=== PATIENT | female | born 1970 | race Caucasian/White ===

== ENCOUNTER 2016-10-03 12:27 | Emergency (ER) | payer OTHER ==
[~2016-10-03] VITALS: Ht 157.5 cm; Wt 57.3 kg
[~2016-10-03 12:27] MED LIST: CITA20TA9 PO; DOCU-275 PO; IBUP100T35 PO; MELO-273 PO; NO MEDS; NOCURR; REMERON; TNFMISC; TOPI25 PO
[2016-10-03] MEDS ORDERED: UNK MUSCLE RELAXER PO (12:39)
[2016-10-03] MEDS ORDERED: HYDR-309 PO (12:39)
[2016-10-03] MEDS ORDERED: GABA-531 PO (12:39)
[2016-10-03] MEDS ORDERED: HYDROCODONE/ACETAMINOPHEN 10-325 MG TABLET PO ONE (13:30)
[2016-10-03] MEDS ORDERED: BACL10TA PO (13:30)
[2016-10-03 14:58] VITALS: BP 111/62
[2016-10-03] MEDS ORDERED: LORazepam 1 MG TABLET PO ONE (15:00)
== END 2016-10-03 14:59 | disposition home or self-care (01) ==
LOC: EMS 12:28
DX: G43.909 Migraine, unspecified, not intractable, without status migrainosus (principal); F41.9 Anxiety disorder, unspecified; M79.7 Fibromyalgia; Z87.448 Personal history of other diseases of urinary system; Z90.721 Acquired absence of ovaries, unilateral; Z91.041 Radiographic dye allergy status
CPT/HCPCS: 70450; 99284

== ENCOUNTER 2021-08-18 21:31 | Emergency (ER) | payer OTHER ==
[~2021-08-18] VITALS: Ht 157.5 cm; Wt 63.6 kg
[~2021-08-18 21:31] MED LIST changes: +BACL10TA PO; -CITA20TA9 PO; -DOCU-275 PO; +DOCU-385 PO; +GABA-1181 PO; +HYDR-309 PO; -IBUP100T35 PO; -MELO-273 PO; -NO MEDS; -NOCURR; -REMERON; -TNFMISC; -TOPI25 PO
[2021-08-18] MEDS ORDERED: TRAM50TA4 PO (21:58)
[2021-08-18 23:28] LABS: BASOPHILS % (AUTO) 0.8 % (0.0-2.0); EOSINOPHILS % (AUTO) 3.5 % (1.0-6.0); HEMATOCRIT 40.1 % (36-46); HEMOGLOBIN 13.2 g/dL (12.0-16.0); LYMPHOCYTES # (AUTO) 1.6 K/uL (1.0-4.8); LYMPHOCYTES % (AUTO) 37.5 % (22.0-44.0); MEAN CORPUSCULAR HEMOGLOBIN 27.3 pg (26.0-34.0); MEAN CORPUSCULAR VOLUME 83 fL (80-100); MONOCYTES # (AUTO) 0.4 K/uL (0.1-1.0); MONOCYTES % (AUTO) 8.6 % (2.0-9.0); NEUTROPHILS # (AUTO) 2.1 K/uL (1.8-7.7); NEUTROPHILS % (AUTO) 49.6 % (40.0-70.0); PLATELET COUNT (AUTO) 223 K/uL (150-450); RED BLOOD CELL COUNT(AUTO) 4.83 MIL/uL (4.00-5.20); RED CELL DISTRIBUTION WIDTH 13.2 % (11.5-14.5)
[2021-08-18 23:37] LABS: ANION GAP 4 mmol/L (8-16); CALCIUM, TOTAL 8.1 mg/dL (8.8-10.5); CARBON DIOXIDE 29 mmol/L (22-29); CHLORIDE 104 mmol/L (98-107); CREATININE 0.73 mg/dL (0.60-1.30); GLOMERULAR FILTR. RATE CALC > 60 mL/min (>60); GLUCOSE,RANDOM 110 mg/dL (70-110); POTASSIUM 3.8 mmol/L (3.5-5.1); SODIUM SERUM 137 mmol/L (136-145); UREA NITROGEN, BLOOD 27 mg/dL (7-18)
[2021-08-18 23:42] LABS: PROTHROMBIN TIME 10.4 SEC (9.4-11.6)
[2021-08-18] MEDS ORDERED: KETOROLAC TROMETHAMINE 30 MG/ML VIAL IM ONE (23:45)
[2021-08-18 23:50] LABS: ALANINE AMINOTRANSFERASE 23 U/L (12-78); ALBUMIN 3.7 g/dL (3.4-5.0); ALKALINE PHOSPHATASE 77 U/L (46-116); ASPARTATE AMINOTRANSFERASE 12 U/L (15-37); BILIRUBIN,TOTAL 0.1 mg/dL (0.1-1.0); HCG,QUANTITATIVE 3 mIU/mL (0-6); TOTAL PROTEIN, SERUM 7.1 g/dL (6.4-8.2)
[2021-08-19] VITALS: BP 141/89
== END 2021-08-19 01:14 | disposition home or self-care (01) ==
LOC: EMS 21:35
DX: M79.652 Pain in left thigh (principal); M79.7 Fibromyalgia; G43.909 Migraine, unspecified, not intractable, without status migrainosus; Q61.3 Polycystic kidney, unspecified; M47.9 Spondylosis, unspecified; Z87.42 Personal history of other diseases of the female genital tract; Z98.890 Other specified postprocedural states; Z98.51 Tubal ligation status; Z91.041 Radiographic dye allergy status
CPT/HCPCS: 36415; 80053; 84702; 85025; 85610; 85730; 96372; 99283; J1885

== ENCOUNTER 2022-08-24 22:08 | Emergency (ER) | payer OTHER ==
[~2022-08-24] VITALS: Ht 157.5 cm; Wt 59.1 kg
[~2022-08-24 22:08] MED LIST changes: -BACL10TA PO; -DOCU-385 PO; -GABA-1181 PO; -HYDR-309 PO; +TRAM-559 PO
[2022-08-24 23:03] LABS: BASOPHILS % (AUTO) 0.4 % (0.0-2.0); EOSINOPHILS % (AUTO) 2.4 % (1.0-6.0); HEMATOCRIT 38.3 % (36-46); HEMOGLOBIN 12.4 g/dL (12.0-16.0); LYMPHOCYTES # (AUTO) 1.1 K/uL (1.0-4.8); LYMPHOCYTES % (AUTO) 21.8 % (22.0-44.0); MEAN CORPUSCULAR HEMOGLOBIN 27.8 pg (26.0-34.0); MEAN CORPUSCULAR HGB CONC 32.4 G/dL (31.0-37.0); MEAN CORPUSCULAR VOLUME 86 fL (80-100); MONOCYTES # (AUTO) 0.4 K/uL (0.1-1.0); MONOCYTES % (AUTO) 6.7 % (2.0-9.0); NEUTROPHILS # (AUTO) 3.6 K/uL (1.8-7.7); NEUTROPHILS % (AUTO) 68.7 % (40.0-70.0); PLATELET COUNT (AUTO) 207 K/uL (150-450); RED BLOOD CELL COUNT(AUTO) 4.47 MIL/uL (4.00-5.20); RED CELL DISTRIBUTION WIDTH 13.3 % (11.5-14.5)
[2022-08-24 23:09] LABS: APPEARANCE,URINE CLEAR (CLEAR); BILIRUBIN,URINE NEGATIVE (NEGATIVE); GLUCOSE, URINE (UA) NEGATIVE (NEGATIVE); KETONES,URINE NEGATIVE (NEGATIVE); LEUKOCYTE ESTERASE ,URINE MODERATE (NEGATIVE); NITRATE,URINE NEGATIVE (NEGATIVE); OCCULT BLOOD,URINE SMALL (NEGATIVE); PROTEIN,URINE NEGATIVE (NEGATIVE); UROBILINOGEN,URINE <=1.0 mg/dL (<=1.0)
[2022-08-24 23:15] LABS: ANION GAP 9 mmol/L (8-16); CALCIUM, TOTAL 9.3 mg/dL (8.8-10.5); CARBON DIOXIDE 27 mmol/L (22-29); CHLORIDE 104 mmol/L (98-107); CREATININE 0.71 mg/dL (0.60-1.30); GLOMERULAR FILTR. RATE CALC > 60 mL/min (>60); GLUCOSE,RANDOM 108 mg/dL (70-110); POTASSIUM 4.2 mmol/L (3.5-5.1); SODIUM SERUM 140 mmol/L (136-145)
[2022-08-24] MEDS ORDERED: FAMOTIDINE 10 MG/ML 2 ML VIAL IVP ONE (23:15)
[2022-08-24] MEDS ORDERED: MAG HYDROX/AL HYDROX/SIMETH 30 ML SUSP UDCUP PO ONE (23:15)
[2022-08-24] MEDS ORDERED: DiphenhydrAMINE HCL 50 MG/ML VIAL IVP ONE (23:15)
[2022-08-24] MEDS ORDERED: SODIUM CHLORIDE 0.9% 1,000 ML IV ONE (23:15)
[2022-08-24] MEDS ORDERED: KETOROLAC TROMETHAMINE 30 MG/ML VIAL IVP ONE (23:15)
[2022-08-24 23:19] LABS: ALANINE AMINOTRANSFERASE 25 U/L (12-78); ALBUMIN 4.1 g/dL (3.4-5.0); ALKALINE PHOSPHATASE 75 U/L (46-116); ASPARTATE AMINOTRANSFERASE 21 U/L (15-37); BILIRUBIN,TOTAL 0.2 mg/dL (0.1-1.0); LIPASE 115 U/L (73-393); TOTAL PROTEIN, SERUM 7.8 g/dL (6.4-8.2)
[2022-08-24 23:26] LABS: BACTERIA,URINE Few /HPF (None Seen); SQUAMOUS EPITHELIAL CELL,UR Few /LPF (None Seen)
[2022-08-24] MEDS ORDERED: IOHEXOL 350 MG/ML 100 ML VIAL ONE (23:38)
[2022-08-24] MEDS ORDERED: SODIUM CHLORIDE 0.9% 100 ML ONE (23:38)
[2022-08-25] MEDS ORDERED: CEPH-558 PO (00:24)
[2022-08-25] MEDS ORDERED: CEPHALEXIN MONOHYDRATE 500 MG CAPSULE PO ONE (00:30)
[2022-08-25 01:05] VITALS: BP 132/71
== END 2022-08-25 01:21 | disposition home or self-care (01) ==
LOC: EMS 22:09
DX: N12 Tubulo-interstitial nephritis, not specified as acute or chronic (principal); M79.7 Fibromyalgia; Z90.710 Acquired absence of both cervix and uterus; Z98.890 Other specified postprocedural states; Z90.722 Acquired absence of ovaries, bilateral; Z91.040 Latex allergy status
CPT/HCPCS: 99285; 74177; 96374; 96375; 96361; 80053; 81001; 83690; 84703; 85025; 36415; 87086; 87186; J1200; J3490; J1885; Q9967; J7030; J7050

== ENCOUNTER 2024-07-28 14:06 | Emergency (ER) | payer OTHER ==
[~2024-07-28] VITALS: Ht 157.5 cm; Wt 59.1 kg
[~2024-07-28 14:06] MED LIST changes: +CEPH-558 PO; -TRAM-559 PO; +TRAM50TA5 PO
[2024-07-28 14:10] VITALS: TEMP 98.1
[2024-07-28] MEDS ORDERED: TRAZ-252 PO (14:14)
[2024-07-28] MEDS ORDERED: GABA-1181 PO (14:14)
[2024-07-28] MEDS: ACETAMINOPHEN 325 MG TABLET PO ONE (15:44)
[2024-07-28] MEDS: LIDOCAINE 5% TRANSDERMAL PATCH TD ONE (15:44)
[2024-07-28 16:10] VITALS: BP 144/88; PULSE 74; RESP 18; O2SAT 98
[2024-07-28] MEDS ORDERED: ACET-2247 PO (16:10)
== END 2024-07-28 16:12 | disposition home or self-care (01) ==
LOC: EMS 14:09
DX: S63.501A Unspecified sprain of right wrist, initial encounter (principal); S39.012A Strain of muscle, fascia and tendon of lower back, initial encounter; M25.551 Pain in right hip; I10 Essential (primary) hypertension; Z91.041 Radiographic dye allergy status; Z90.710 Acquired absence of both cervix and uterus; Z79.899 Other long term (current) drug therapy; W19.XXXA Unspecified fall, initial encounter; Y93.89 Activity, other specified; Y92.89 Other specified places as the place of occurrence of the external cause; Y99.8 Other external cause status
CPT/HCPCS: 73502; 99284